=== PATIENT | male | born 1950 | race Two or more races ===

== ENCOUNTER 2018-01-25 13:16 | Outpatient (CLI) | payer MEDICARE | END 2018-02-01 11:06 | disposition home or self-care (01) | LOC: WOUND 13:16 | PROVIDERS: ATTEND Nurse Practitioner Family | DX: S60.941A Unspecified superficial injury of left index finger, initial encounter (principal); E78.5 Hyperlipidemia, unspecified; D13.6 Benign neoplasm of pancreas; X58.XXXA Exposure to other specified factors, initial encounter; Y93.89 Activity, other specified; Y92.89 Other specified places as the place of occurrence of the external cause; Y99.8 Other external cause status; Z85.07 Personal history of malignant neoplasm of pancreas | CPT/HCPCS: G0463 ==

== ENCOUNTER → 2018-02-01 | Outpatient (CLI) | payer MEDICARE | END | disposition home or self-care (01) | LOC: WOUND 14:44 | PROVIDERS: ATTEND Nurse Practitioner Family | DX: S60.94 Unspecified superficial injury of other fingers (principal); E11.51 Type 2 diabetes mellitus with diabetic peripheral angiopathy without gangrene; I13.10 Hypertensive heart and chronic kidney disease without heart failure, with stage 1 through stage 4 chronic kidney disease, or unspecified chronic kidney disease; E11.22 Type 2 diabetes mellitus with diabetic chronic kidney disease; N18.9 Chronic kidney disease, unspecified; L84 Corns and callosities; E78.5 Hyperlipidemia, unspecified; F12.10 Cannabis abuse, uncomplicated; G47.30 Sleep apnea, unspecified; F41.9 Anxiety disorder, unspecified; F32.9 Major depressive disorder, single episode, unspecified; E78.00 Pure hypercholesterolemia, unspecified; J44.9 Chronic obstructive pulmonary disease, unspecified; E03.9 Hypothyroidism, unspecified; E66.01 Morbid (severe) obesity due to excess calories; Z68.42 Body mass index [BMI] 45.0-49.9, adult; Z79.4 Long term (current) use of insulin; Z87.891 Personal history of nicotine dependence; Z85.46 Personal history of malignant neoplasm of prostate; Z85.07 Personal history of malignant neoplasm of pancreas | CPT/HCPCS: 11042 ==

== ENCOUNTER → 2018-02-08 | Outpatient (CLI) | payer MEDICARE | END | disposition home or self-care (01) | LOC: WOUND 13:15 | PROVIDERS: ATTEND Nurse Practitioner Family | DX: S61.201D Unspecified open wound of left index finger without damage to nail, subsequent encounter (principal); L84 Corns and callosities; E78.5 Hyperlipidemia, unspecified; D13.6 Benign neoplasm of pancreas; W26.0XXD Contact with knife, subsequent encounter | CPT/HCPCS: 97597 ==

== ENCOUNTER → 2018-02-15 | Outpatient (CLI) | payer MEDICARE | END | disposition home or self-care (01) | LOC: WOUND 09:43 | PROVIDERS: ATTEND Internal Medicine Infectious Disease | DX: S61.201D Unspecified open wound of left index finger without damage to nail, subsequent encounter (principal); E78.5 Hyperlipidemia, unspecified; Z85.46 Personal history of malignant neoplasm of prostate; X58.XXXD Exposure to other specified factors, subsequent encounter | CPT/HCPCS: G0463 ==